=== PATIENT | female | born 1960 | race Two or more races ===

== ENCOUNTER 2017-01-28 07:27 | Emergency (ER) | payer BC ==
[~2017-01-28] VITALS: Ht 165.1 cm; Wt 73.9 kg
[2017-01-28 08:43] VITALS: BP 115/46
== END 2017-01-28 08:43 | disposition home or self-care (01) ==
LOC: ED 07:27
DX: S05.01XA Injury of conjunctiva and corneal abrasion without foreign body, right eye, initial encounter (principal); X58.XXXA Exposure to other specified factors, initial encounter; Y93.89 Activity, other specified; Y99.8 Other external cause status; Y92.89 Other specified places as the place of occurrence of the external cause